=== PATIENT | female | born 1975 | race Caucasian/White ===

== ENCOUNTER 2017-12-03 09:03 | Emergency (ER) | payer OTHER ==
[~2017-12-03] VITALS: Ht 157.5 cm; Wt 83.0 kg
[~2017-12-03 09:03] MED LIST: BYSTOLIC 5 MG5 M1; LOPRESSOR50; MULTIVITAMINS; ZYRTEC10 MG
[2017-12-03] MEDS ORDERED: KLOR-CON SPRINK8 MEQ PO (09:57)
[2017-12-03] MEDS ORDERED: ATENOLOL 50MG T50 M1 PO (09:57)
[2017-12-03] MEDS ORDERED: NORCO 5-325 TA1 EACH PO (11:18)
[2017-12-03] MEDS ORDERED: PREDNISONE50 MG PO (11:18)
[2017-12-03 11:41] VITALS: BP 148/86
== END 2017-12-03 11:42 | disposition home or self-care (01) ==
LOC: ER 09:03
DX: R20.2 Paresthesia of skin (principal); I10 Essential (primary) hypertension; Z88.8 Allergy status to other drugs, medicaments and biological substances